=== PATIENT | male | born 1985 | race Caucasian/White ===

== ENCOUNTER 2016-10-13 15:57 | Emergency (ER) | payer OTHER ==
[~2016-10-13] VITALS: Ht 172.7 cm; Wt 100.2 kg
[2016-10-13 16:00] VITALS: BP 139/85
[2016-10-13] MEDS ORDERED: CYCLOBENZAPRINE10 MG PO (16:40)
[2016-10-13] MEDS ORDERED: MEN'S MULTI-VI1 EACH PO (16:41)
== END 2016-10-13 18:20 | disposition home or self-care (01) ==
LOC: EME 15:57
DX: S06.0X0A Concussion without loss of consciousness, initial encounter (principal); S09.90XA Unspecified injury of head, initial encounter; W01.198A Fall on same level from slipping, tripping and stumbling with subsequent striking against other object, initial encounter; Y93.E1 Activity, personal bathing and showering; Y92.002 Bathroom of unspecified non-institutional (private) residence as the place of occurrence of the external cause; F17.200 Nicotine dependence, unspecified, uncomplicated
CPT/HCPCS: 70450; 99281; 99284